=== PATIENT | female | born 1955 | race Caucasian/White ===

== ENCOUNTER 2025-05-03 15:23 | Inpatient (IN) | payer MEDICARE, BC ==
[~2025-05-03] VITALS: Ht 157.5 cm; Wt 54.0 kg
[2025-05-03 16:26] LABS: PLATELET COUNT (AUTO) 366 K/uL (179-408); RED BLOOD CELL COUNT(AUTO) 4.51 MIL/uL (3.63-4.92); RED CELL DISTRIBUTION WIDTH 13.9 % (12.3-17.7); WHITE BLOOD COUNT (AUTO) 8.8 K/uL (3.8-11.8)
[2025-05-03] MEDS ORDERED: GABA300C PO (16:31)
[2025-05-03] MEDS ORDERED: BUSP5TAB3 PO (16:31)
[2025-05-03] MEDS ORDERED: IBUP-1955 PO (16:31)
[2025-05-03] MEDS ORDERED: AMLO2.5T4 PO (16:31)
[2025-05-03] MEDS ORDERED: MAG355OR18 PO (16:31)
[2025-05-03] MEDS ORDERED: ACET325T53 PO (16:31)
[2025-05-03] MEDS ORDERED: POLY119P17 PO (16:31)
[2025-05-03] MEDS ORDERED: BISA-79 PO (16:31)
[2025-05-03 16:35] LABS: ETHANOL < 3 MG/DL (0-10)
[2025-05-03 16:38] LABS: CREATININE 0.9 mg/dL (0.6-1.3); SODIUM SERUM 143 mmol/L (136-145); UREA NITROGEN, BLOOD 41 mg/dL (7-18)
[2025-05-03] MEDS ORDERED: MAGN400O6 PO (16:38)
[2025-05-03] MEDS ORDERED: ONDA4TAB5 PO (16:38)
[2025-05-03] MEDS ORDERED: METO25TA6 PO (16:38)
[2025-05-03] MEDS ORDERED: QUET25TA PO (16:38)
[2025-05-03] MEDS ORDERED: VENL75TA74 PO (16:38)
[2025-05-03] MEDS ORDERED: SPIR25TA6 PO (16:38)
[2025-05-03] MEDS ORDERED: ZOLP5TAB8 PO (16:38)
[2025-05-03] MEDS ORDERED: PHEN-704 PO (16:38)
[2025-05-03 16:49] LABS: ASPARTATE AMINOTRANSFERASE < 5 U/L (15-37); TOTAL PROTEIN, SERUM 5.5 g/dL (6.4-8.2)
[2025-05-03 17:44] LABS: *BILIRUBIN,URIN 1+ (NEGATIVE); *COLOR,URINE YELLOW (YELLOW); *KETONES,URINE TRACE (NEGATIVE); *PROTEIN,URINE 1+ (NEGATIVE); *UROBILINOGEN,URINE 0.2 E.U./dl (NORMAL); LEUKOCYTE ESTERASE ,URINE 3+ (NEGATIVE); NITRITE, URINE NEGATIVE (NEGATIVE); UGLUCOSE NEGATIVE (NEGATIVE)
[2025-05-03 17:50] VITALS: BP 131/69
[2025-05-03 17:51] LABS: *BLOOD, URINE TRACE (NEGATIVE); *CLARITY,URINE SLIGHTLY CLOUDY (CLEAR)
[2025-05-03 18:00] LABS: SQUAMOUS EPITHELIAL CELL,UR FEW /HPF (NONE SEEN)
[2025-05-03 18:03] LABS: *AMPHETAMINE, URINE NEGATIVE (NEGATIVE); *BARBITURATE, URINE NEGATIVE (NEGATIVE); *BENZODIAZEPINE, URINE NEGATIVE (NEGATIVE); *CANNABINOID, URINE NEGATIVE (NEGATIVE); *COCCAINE, URINE NEGATIVE (NEGATIVE); *OPIATE, URINE NEGATIVE (NEGATIVE); *PHENCYCLIDINE SCREEN,URINE NEGATIVE (NEGATIVE); FENTANYL, URINE NEGATIVE (NEGATIVE)
[2025-05-03] MEDS ORDERED: MAG HYDROX/AL HYDROX/SIMETH 30 ML LIQUID UDC PO PRN (19:15)
[2025-05-03] MEDS ORDERED: ACETAMINOPHEN 325 MG TABLET PO PRN (19:15)
[2025-05-03] MEDS ORDERED: MAGNESIUM HYDROXIDE 30 ML LIQUID UDC PO PRN (19:15)
[2025-05-03 19:26] VITALS: BP 126/89; TEMP 98.2; O2SAT 98
[2025-05-03] MEDS: BLOOD SUGAR DIAGNOSTIC 1 EACH STRIP VI ONE (19:33)
[2025-05-03] MEDS ORDERED: LORAZEPAM 1 MG TABLET PO PRN ×2 (19:45)
[2025-05-03] MEDS ORDERED: TEMAZEPAM 7.5 MG CAPSULE PO PRN ×2 (19:45)
[2025-05-03] MEDS: BISACODYL 5 MG TABLET.DR PO SCH (20:53)
[2025-05-03] MEDS: NITROFURANTOIN/NITROFURAN MAC 100 MG CAPSULE PO SCH (20:53)
[2025-05-03] MEDS ORDERED: SPIRONOLACTONE 25 MG TABLET PO SCH (21:00)
[2025-05-04] MEDS ORDERED: ZOLPIDEM 5 MG TABLET PO PRN ×2 (01:30)
[2025-05-04] MEDS ORDERED: QUETIAPINE FUMARATE 25 MG TABLET PO PRN ×2 (01:30)
[2025-05-04 08:22] VITALS: BP 99/65; TEMP 98; O2SAT 98
[2025-05-04 08:31] LABS: CREATININE 0.8 mg/dL (0.6-1.3); SODIUM SERUM 140 mmol/L (136-145); TOTAL PROTEIN, SERUM 5.4 g/dL (6.4-8.2); UREA NITROGEN, BLOOD 36 mg/dL (7-18)
[2025-05-04] MEDS: AMLODIPINE 2.5 MG TABLET PO SCH (08:59)
[2025-05-04] MEDS: METOPROLOL TARTRATE 25 MG TABLET PO SCH (08:59)
[2025-05-04 09:00] LABS: ASPARTATE AMINOTRANSFERASE < 5 U/L (15-37)
[2025-05-04] MEDS ORDERED: POLYETHYLENE GLYCOL 3350 238 GM POWDER PO SCH (09:00)
[2025-05-04] MEDS: MIRALAX 17 GM POWD.PACK PO SCH (09:00)
[2025-05-04] MEDS: GABAPENTIN 300 MG CAPSULE PO SCH (12:34)
[2025-05-04 15:12] VITALS: BP 117/69; TEMP 98; O2SAT 96
[2025-05-04 19:55] VITALS: BP 110/63; TEMP 97.9; O2SAT 95
[2025-05-04] MEDS: VENLAFAXINE 25 MG TABLET PO SCH (20:51)
[2025-05-04] MEDS: BISACODYL 5 MG TABLET.DR PO PRN (21:57)
[2025-05-05 08:18] VITALS: BP 104/57; TEMP 98; O2SAT 96
[2025-05-05 16:32] VITALS: BP 110/61; TEMP 98; O2SAT 96
[2025-05-05] MEDS: ENSURE ENLIVE (VAN) 240 ML LIQUID PO SCH (17:22)
[2025-05-05 20:00] VITALS: BP 117/70; TEMP 97.7; O2SAT 94
[2025-05-05] MEDS: METOPROLOL TARTRATE 25 MG TABLET PO SCH (21:00)
[2025-05-05] MEDS: AMLODIPINE 2.5 MG TABLET PO SCH (21:00)
[2025-05-06 08:16] VITALS: BP 139/66; TEMP 98; O2SAT 96
[2025-05-06] MEDS: SULFAMETH/TRIMETH 800/160 MG TABLET PO SCH (12:25)
[2025-05-06 16:22] VITALS: BP 105/68; TEMP 98; O2SAT 96
[2025-05-06] MEDS: GABAPENTIN 100 MG CAPSULE PO SCH (16:28)
[2025-05-06 20:00] VITALS: BP 100/60; TEMP 98.4; O2SAT 95
[2025-05-06] MEDS: OLANZAPINE 5 MG TABLET PO SCH (20:51)
[2025-05-06] MEDS: MIRTAZAPINE 15 MG TABLET PO SCH (20:52)
[2025-05-06] MEDS ORDERED: GABAPENTIN 300 MG CAPSULE PO SCH (21:00)
[2025-05-07] MEDS: VENLAFAXINE 25 MG TABLET PO SCH (08:26)
[2025-05-07 16:47] VITALS: BP 108/61; TEMP 98; O2SAT 96
[2025-05-07 20:00] VITALS: BP 98/55; TEMP 98.2; O2SAT 95
[2025-05-08 08:00] VITALS: BP 92/55; TEMP 97.6; O2SAT 95
[2025-05-08 16:00] VITALS: BP 94/63; TEMP 99.1; O2SAT 95
[2025-05-08 20:20] VITALS: BP 95/52; TEMP 98.8; O2SAT 95
[2025-05-09 07:50] VITALS: BP 101/66; TEMP 98; O2SAT 96
[2025-05-09] MEDS ORDERED: VENLAFAXINE 25 MG TABLET PO SCH (09:00)
[2025-05-09] MEDS: VENLAFAXINE XR 75 MG TAB.ER.24H PO SCH (09:01)
[2025-05-09 15:14] VITALS: BP 164/66; TEMP 98; O2SAT 98
[2025-05-09 19:58] VITALS: BP 101/61; TEMP 97.9; O2SAT 95
[2025-05-09] MEDS: OLANZAPINE 5 MG TABLET PO SCH (20:38)
[2025-05-10 08:04] VITALS: BP 126/60; TEMP 97.8; O2SAT 96
[2025-05-10 15:17] VITALS: BP 98/55; TEMP 98; O2SAT 96
[2025-05-10 19:59] VITALS: BP 99/54; TEMP 98; O2SAT 95
[2025-05-10] MEDS: MIRTAZAPINE 15 MG TABLET PO SCH (20:48)
[2025-05-11 07:50] VITALS: BP 128/76; TEMP 98.4; O2SAT 95
[2025-05-11 07:59] LABS: CREATININE 1.1 mg/dL (0.6-1.3); SODIUM SERUM 139 mmol/L (136-145); UREA NITROGEN, BLOOD 25 mg/dL (7-18)
[2025-05-11 16:30] VITALS: BP 91/61; TEMP 97.4; O2SAT 99
[2025-05-11 19:52] VITALS: BP 103/58; TEMP 97.6; O2SAT 96
[2025-05-12 08:28] VITALS: BP 115/69; TEMP 97.6; O2SAT 96
[2025-05-12 16:30] VITALS: BP 107/56; TEMP 97.6; O2SAT 96
[2025-05-12 19:56] VITALS: BP 112/62; TEMP 97.9; O2SAT 98
[2025-05-13 08:57] VITALS: BP 109/75; TEMP 97.6; O2SAT 96
[2025-05-13 16:37] VITALS: BP 97/55; TEMP 97.6; O2SAT 96
[2025-05-13 19:50] VITALS: BP 108/59; TEMP 97.6; O2SAT 95
[2025-05-13] MEDS: ATORVASTATIN 20 MG TABLET PO SCH (20:21)
[2025-05-13] MEDS: OLANZAPINE 5 MG TABLET PO SCH (20:21)
[2025-05-14 08:54] VITALS: BP 101/58; TEMP 97.6; O2SAT 96
[2025-05-14 16:49] VITALS: BP 106/61; TEMP 97.6; O2SAT 96
[2025-05-14 20:00] VITALS: BP 107/67; TEMP 97.9; O2SAT 96
[2025-05-15 08:00] VITALS: BP 114/73; TEMP 97.8; O2SAT 97
[2025-05-15 13:15] VITALS: BP 136/77; TEMP 98.4; O2SAT 93
== END 2025-05-15 15:30 | DRG 885 ==
LOC: ER 15:23 → GPS 18:17
PROVIDERS: ADMIT Psychiatry & Neurology Psychiatry; ATTEND Nurse Practitioner Family
DX: F31.5 Bipolar disorder, current episode depressed, severe, with psychotic features (principal); E22.2 Syndrome of inappropriate secretion of antidiuretic hormone; E44.0 Moderate protein-calorie malnutrition; N39.0 Urinary tract infection, site not specified; G62.9 Polyneuropathy, unspecified; F41.9 Anxiety disorder, unspecified; Z91.148 Patient's other noncompliance with medication regimen for other reason; Z79.899 Other long term (current) drug therapy; E86.0 Dehydration; Z87.891 Personal history of nicotine dependence; B96.89 Other specified bacterial agents as the cause of diseases classified elsewhere; E78.5 Hyperlipidemia, unspecified; I10 Essential (primary) hypertension; E88.09 Other disorders of plasma-protein metabolism, not elsewhere classified; Z68.21 Body mass index [BMI] 21.0-21.9, adult; R26.89 Other abnormalities of gait and mobility; M62.81 Muscle weakness (generalized); R79.89 Other specified abnormal findings of blood chemistry
CPT/HCPCS: 36415; 82746; 84443; 85025; 87077; 87086; C1758; G0480